=== PATIENT | female | born 1960 | race Caucasian/White ===

== ENCOUNTER 2017-12-17 16:08 | Emergency (ER) | payer BC, SELFPAY ==
[2017-12-17 16:12] VITALS: BP 166/102; PULSE 82; RESP 17; TEMP 36.9; O2SAT 99; BMI 27.6
--- NOTE | 2017-12-17 16:32 | EKG12_ITS ---
Test Reason : Blood Pressure : / mmHG Vent. Rate : 072 BPM Atrial Rate : 072 BPM P-R Int : 152 ms QRS Dur : 098 ms QT Int : 412 ms P-R-T Axes : 077 071 063 degrees QTc Int : 451 ms Normal sinus rhythm Left ventricular hypertrophy Abnormal ECG Confirmed by DESIRAE HOPKINS, NELLIE ([id number]), newspaper copy editor TIA MCMAHON ([id number]) on 12/22/2017 12:32:14 PM Referred By: Confirmed By:NELLIE MERRILL MD
--- NOTE | 2017-12-17 16:33 | ED.VISSUMM ---
- ER Visit Summary Date of Service: 12/17/17 Chief Complaint: UTI symptoms History of Present Illness: The patient is a 57 F presenting with UTI symptoms from [facility]. She states over the past couple of days she has had dysuria and urinary frequency. She has been taking Azo at home with no relief. She also complains of shortness of breath over the past couple of days. She has had a nonproductive cough. She denies fever. Denies chest pain. History of COPD. [facility] was concerned about her blood pressure. She is from [place] and here visiting. Physical Examination: Blood pressure 166/102. Patient is afebrile. Alert no acute distress. HEENT exam is unremarkable. Neck is supple. Lungs are clear and equal bilaterally. Heart is regular rate and rhythm. Abdomen is soft nontender nondistended. Back: Mild bilateral CVA tenderness Extremities are unremarkable. Skin is warm and dry. No focal neurologic deficit. Remainder of exam is unremarkable. Emergency Department Course and Treatment: EKG is sinus rhythm rate of 72, LVH. CBC shows hemoglobin 11.8. Chemistries unremarkable. Urinalysis shows 25-50 white blood cells, positive leukocyte, positive nitrite. Troponin is negative. D-dimer negative. Patient was given albuterol Atrovent aerosol. Chest x-ray shows no acute process. On reevaluation, patient is resting comfortably. With ambulation her pulse ox is 94% on room air. Her repeat blood pressure without treatment is 145/92. She is advised to follow-up with her primary care physician when she returns home next week. She is given a prescription for Bactrim. She is advised to return to the ED for any worsening complaints. Disposition: Discharge home Impression: UTI This note was generated with [employer] dictation software. It may contain incorrect words, spelling, and punctuation that were not noted in review of the chart prior to signing ED Disposition - Plan for ED Patient: Chief Complaint: Complaint Instructions: ED UTI Cystitis Female Prescriptions: Smz/Tmp Ds [Bactrim Ds] 1 tablet PO BID #14 tablet Referrals: [facility] Doctor,Out of [Primary Care Provider] -
--- NOTE | 2017-12-17 16:36 | ED.DCSUM_ITS ---
- ER Visit Summary Date of Service: 12/17/17 Chief Complaint: UTI symptoms History of Present Illness: The patient is a 57 F presenting with UTI symptoms from [facility]. She states over the past couple of days she has had dysuria and urinary frequency. She has been taking Azo at home with no relief. She also complains of shortness of breath over the past couple of days. She has had a nonproductive cough. She denies fever. Denies chest pain. History of COPD. [facility] was concerned about her blood pressure. She is from [place] and here visiting. Physical Examination: Blood pressure 166/102. Patient is afebrile. Alert no acute distress. HEENT exam is unremarkable. Neck is supple. Lungs are clear and equal bilaterally. Heart is regular rate and rhythm. Abdomen is soft nontender nondistended. Back: Mild bilateral CVA tenderness Extremities are unremarkable. Skin is warm and dry. No focal neurologic deficit. Remainder of exam is unremarkable. Emergency Department Course and Treatment: EKG is sinus rhythm rate of 72, LVH. CBC shows hemoglobin 11.8. Chemistries unremarkable. Urinalysis shows 25-50 white blood cells, positive leukocyte, positive nitrite. Troponin is negative. D-dimer negative. Patient was given albuterol Atrovent aerosol. Chest x-ray shows no acute process. On reevaluation, patient is resting comfortably. With ambulation her pulse ox is 94% on room air. Her repeat blood pressure without treatment is 145/92. She is advised to follow-up with her primary care physician when she returns home next week. She is given a prescription for Bactrim. She is advised to return to the ED for any worsening complaints. Disposition: Discharge home Impression: UTI This note was generated with [employer] dictation software. It may contain incorrect words, spelling, and punctuation that were not noted in review of the chart prior to signing ED Disposition - Plan for ED Patient: Chief Complaint: Complaint Instructions: ED UTI Cystitis Female Prescriptions: Smz/Tmp Ds [Bactrim Ds] 1 tablet PO BID #14 tablet Referrals: [facility] Doctor,Out of [Primary Care Provider] -
--- NOTE | 2017-12-17 16:40 | RAD_ITS ---
STUDY: X-RAY CHEST REASON FOR EXAM: Female, 57 years old. Burning with urination. And body aches. TECHNIQUE: Single frontal view of the chest. COMPARISON: None. FINDINGS: There is no focal consolidation. Normal size heart. Normal mediastinum and adelso. Normal visualized pulmonary arteries. Normal visualized aortic arch and descending thoracic aorta. Normal visualized thoracic spine. Normal visualized ribs, clavicles, and shoulders. There is no demonstrated abnormality of the visualized soft tissue structures of the upper abdomen. RAD/Chest 1 View (Portable) IMPRESSION: No acute cardiopulmonary process. Electronically Signed: Nelly Sanchez MD at 17:08 EDT Tel , Service support ,
[2017-12-17 16:41] LABS: Mucous, Urine 0 SEEN /hpf (<or=2+)
[2017-12-17 16:55] LABS: Color, Urine Yellow (Yellow); Glucose, Dipstick Normal (Normal); Ketone-Dipstick Negative (Negative); Leukocyte Esterase-Dipstick 500 /ul (Negative); Nitrite-Dipstick Positive (Negative); Occult Blood-Urine 10 /ul (Negative); Protein-Dipstick Negative (Negative); Specific Gravity, Urine 1.005 (1.002-1.030); Urine Bilirubin Dipstick Negative (Negative); Urine Clarity Sl. Cloudy (Clear); Urine Urobilinogen Normal (Normal); Urine pH 6.5 (5.0 - 8.0)
[2017-12-17 17:01] VITALS: PULSE 77; RESP 18
[2017-12-17] MEDS: Ipratropium/Albuterol Sulfate 3 ML AMPUL.NEB INHALATION (17:01)
[2017-12-17 17:19] LABS: Absolute Lymphocyte Count 1.85 X10^3/ul (0.83-4.51); Absolute Neutrophil Count 3.3 X10^3/uL (2.0-7.7); Basophil# 0.03 X10^3/uL; Basophil% 0.5 % (0-1); Eosinophil# 0.07 X10^3/uL; Eosinophils% 1.2 % (0-5); Hematocrit 35.4 % (37-47); Hemoglobin 11.8 g/dl (12.0-15.0); Lymphocyte # 1.85 X10^3/ul (4.0); Lymphocyte % 32.5 % (19-41); Mean Corp Hgb Conc 33.3 g/gl (32-36); Mean Corpuscular Hgb 32.3 pg (27.0-32.0); Mean Platelet Vol. 9.7 fl (6.2-12.0); Monocyte# 0.45 X10^3/uL; Monocyte% 7.9 % (0-10); Neutrophil # 3.28 X10^3/uL (2.7-7.7); Neutrophil % 57.7 % (47-70); Platelet Count 275 K/mm3 (150-450); RBC Distribution Width CV 12.3 % (11.6-14.6); RBC Distribution Width SD 41.8 fl (35.1-43.9); Red Blood Count 3.65 M/mm3 (4.2-5.4); White Blood Count 5.7 K/mm3 (4.4-11.0)
[2017-12-17 17:25] LABS: POSITIVE COUNT NO; POSITIVE DIFFERENTIAL NO; POSITIVE MORPHOLOGY NO
[2017-12-17 17:49] LABS: BUN 8 mg/dL (7-18); Creatinine, Serum 0.67 mg/dL (0.55-1.02); EST Glomerular Filtration Rate 95 mL/min (>60); Estimated Creatinine Clearance 68.22 ml/min; Glucose 86 mg/dL (74-106)
[2017-12-17 17:50] LABS: Anion Gap 6 (5-15); BUN/Creat Ratio 11.9 RATIO (10-20); Calcium,Total 9.3 mg/dL (8.5-10.1); Chloride 100 mmol/L (98-107); Est Glom Filt Rate - Afr Amer 115 mL/min (>60); Potassium 3.7 mmol/L (3.5-5.1); Sodium Level 136 mmol/L (136-145)
[2017-12-17 17:52] LABS: Red Blood Cells-Urine 0-5 SEEN /hpf (0-5); White Blood Cells 25-50 SEEN /hpf (0-5)
[2017-12-17 17:53] LABS: Bacteria 1+ /hpf (None Seen); Squamous Epithelial Cells - UA 0-5 SEEN /hpf (5-10)
[2017-12-17 18:12] LABS: D-Dimer Quantitative (DVT/PE) < 0.27 FEU/ug/m (0.27-0.49)
--- NOTE | 2017-12-17 18:35 | DCINST.ED_ITS ---
ED Disposition - Plan for ED Patient: Chief Complaint: Complaint Instructions: ED UTI Cystitis Female Prescriptions: Smz/Tmp Ds [Bactrim Ds] 1 tablet PO BID #14 tablet Referrals: [facility] Doctor,Out of [Primary Care Provider] -
[2017-12-17 18:45] VITALS: BP 147/90; PULSE 84; PULSE 89; RESP 18; O2SAT 97
[2017-12-17] MEDS: Smz/Tmp Ds Tablet 1 TABLET PO (18:50)
== END 2017-12-17 18:51 | disposition home or self-care (01) ==
PROVIDERS: Emergency Provider Emergency Medicine
DX: N39.0 Urinary tract infection, site not specified (principal); J44.9 Chronic obstructive pulmonary disease, unspecified; K21.9 Gastro-esophageal reflux disease without esophagitis; F32.9 Major depressive disorder, single episode, unspecified; Z87.891 Personal history of nicotine dependence; Z79.51 Long term (current) use of inhaled steroids; Z79.899 Other long term (current) drug therapy
CPT/HCPCS: 36415; 71045; 80048; 81001; 84484; 85025; 85379; 93005; 94640; 99284